=== PATIENT | male | born 1950 | race Caucasian/White ===

== ENCOUNTER → 2022-08-22 | Outpatient (CLI) | payer BC | END | disposition home or self-care (01) | LOC: LABWHC1 14:59 | PROVIDERS: ATTEND Orthopaedic Surgery | DX: M25.551 Pain in right hip (principal); Z96.641 Presence of right artificial hip joint; Z47.1 Aftercare following joint replacement surgery | CPT/HCPCS: 36415; 86140 ==

== ENCOUNTER 2023-12-11 15:00 | Observation (INO) | payer MEDICARE ==
--- NOTE | 2023-12-11 16:39 | ED ---
Neck Injury/Pain HPI - General Chief Complaint: Neck Pain/Injury Stated Complaint: poss meningitis Time Seen by Provider: 12/11/23 16:00 Source: patient, RN notes reviewed Mode of arrival: ambulatory Limitations: no limitations - History of Present Illness Initial Comments: 73-year-old male presenting to the ER for neck stiffness. Patient was seen by Lety Feliz from [facility] and was sent to ER for possible meningitis. Patient reports he has had a cough, nasal congestion, sore throat x 1 week. Over the course of the week he has had progressive neck stiffness and headache. States he "cannot focus with my eyes". Denies fevers, denies trauma or injury. He has never had this before. Denies altered mental status or confusion. No re cent travel. He is up-to-date on all vaccinations except for COVID-19. History of hypertension. - Related Data Home Medications Medication Instructions Recorded Confirmed Telmisartan 20 mg PO DAILY 12/11/23 12/11/23 Allergies Allergy/AdvReac Type Severity Reaction Status Date / Time bee venom protein (honey bee) Allergy Anaphylaxis Verified 12/11/23 19:57 Review of Systems ROS Statement: Those systems with pertinent positive or pertinent negative responses have been documented in the HPI. ROS Other: All systems not noted in ROS Statement are negative. Past Medical History Past Medical History: Hypertension Additional Past Surgical History / Comment(s): bilateral hips, right shoulder replacement, Past Psychological History: No Psychological Hx Reported Smoking Status: Former smoker Past Alcohol Use History: Daily Past Drug Use History: None Reported General Exam Limitations: no limitations General appearance: alert, in no apparent distress Head exam: Present: atraumatic, normocephalic, normal inspection Eye exam: Present: normal appearance, PERRL, EOMI. Absent: scleral icterus, conjunctival injection, periorbital swelling ENT exam: Present: normal exam, normal oropharynx, mucous membranes moist Neck exam: Present: normal inspection, other (Negative Kernig's and Bruskinsi sign). Absent: tenderness, meningismus, full ROM (Limited active flexion and extension of neck, full passive flexion and extension with pain), lymphadenopathy Respiratory exam: Present: normal lung sounds bilaterally. Absent: respiratory distress, wheezes, rales, rhonchi, stridor Cardiovascular Exam: Present: regular rate, normal rhythm, normal heart sounds. Absent: systolic murmur, diastolic murmur, rubs, gallop, clicks Neurological exam: Present: alert, oriented X3, CN II-XII intact Psychiatric exam: Present: normal affect, normal mood Skin exam: Present: warm, dry, intact, normal color. Absent: rash Course Vital Signs 12/11/23 12/11/23 12/11/23 15:26 16:15 18:45 Temperature 98.1 F 98 F 97.5 F L Pulse Rate 78 75 54 L Respiratory 18 18 Rate Blood Pressure 160/89 143/99 139/83 O2 Sat by Pulse 99 99 99 Oximetry 12/11/23 22:08 Temperature Pulse Rate 57 L Respiratory 17 Rate Blood Pressure 137/80 O2 Sat by Pulse 100 Oximetry Medical Decision Making - Medical Decision Making Was pt. sent in by a medical professional or institution (, PA, MAIL CLERK BILLS, urgent care, hospital, or residential...) When possible be specific @ -Sent by Dr. Feliz from [place] for possible meningitis Did you speak to anyone other than the patient for history (EMS, parent, family, police, friend...)? What history was obtained from this source @ -No Did you review nursing and triage notes (agree or disagree)? Why? @ -I reviewed and agree with nursing and triage notes Were old charts reviewed (outside hosp., previous admission, EMS record, old EKG, old radiological studies, urgent care reports/EKG's, residential records)? Report findings @ -No old charts were reviewed Differential Diagnosis (chest pain, altered mental status, abdominal pain women, abdominal pain men, vaginal bleeding, weakness, fever, dyspnea, syncope, headache, dizziness, GI bleed, back pain, seizure, CVA, palpatations, mental health, musculoskeletal)? @ -Differential Headache: Meningitis, viral URI, muscular strain, migraine, tension, cluster, carbon monoxide, central venous thrombosis, pension karma temporal arteritis, acute closure glaucoma, intercranial hemorrhage, mastoiditis, sinusitis, head injury, this is not meant to be an all-inclusive list. EKG interpreted by me (3pts min.). @ -None X-rays interpreted by me (1pt min.). @ -Chest x-ray reveals no acute process CT interpreted by me (1pt min.). @ -CT head and neck revealed no acute process U/S interpreted by me (1pt. min.). @ -None done What testing was considered but not performed or refused? (CT, X-rays, U/S, labs )? Why? @ -None What meds were considered but not given or refused? Why? @ -None Did you discuss the management of the patient with other professionals (professionals i.e. Dr., PA, MAIL CLERK BILLS, lab, RT, psych nurse, social science analyst, grinding supervisor, teacher, conservation enforcement officer, family independence case manager)? Give summary @ -I spoke with Dr. Malave on-call neurologist who recommends admission for lumbar puncture Was smoking cessation discussed for >3mins.? @ -No Was critical care preformed (if so, how long)? @ -No Were there social determinants of health that impacted care today? How? (Homelessness, low income, unemployed, alcoholism, drug addiction, transportation, low edu. Level, literacy, decrease access to med. care, detention, rehab)? @ -No Was there de-escalation of care discussed even if they declined (Discuss DNR or withdrawal of care, Hospice)? DNR status @ -No What co-morbidities impacted this encounter? (DM, HTN, Smoking, COPD, CAD, Cancer, CVA, ARF, Chemo, Hep., AIDS, mental health diagnosis, sleep apnea, morbid obesity)? @ -None Was patient admitted / discharged? Hospital course, mention meds given and route, prescriptions, significant lab abnormalities, going to OR and other pertinent info. @ -Admitted. This is a 73-year-old male with history of hypertension presenting with neck pain x 3 days. Patient has been experiencing cough and sore throat for the past week. He is experiencing pain and limited range of motion of neck. He was sent by Dr. Feliz from [place] for possible meningitis. Patient is afebrile, vital signs within acceptable limits. There is limited active range of motion of neck on examination, full passive range of motion with pain. Negative Kernig's and Bruzinski sign. Neurovascularly intact. Patient was provided with Tylenol and Toradol for symptom control. Lab work including CBC, CMP, lactic acid remarkable for blood glucose 47, however on recheck is 82. Patient was given juice. White blood cell count stable at 7.9. Cepheid and strep negative. Chest x-ray reveals no acute process. CT of head and neck revealed no acute process. I spoke with Dr. Malave on-call neurologist who recommends admission for lumbar puncture. Blood cultures were taken. Patient was empirically treated for meningitis and started on IV antibiotics, antivirals, and given 1 dose of dexamethasone. Patient was admitted to medicine team with consultation to interventional radiology for lumbar puncture. Case was discussed with my ED attending Dr. Mendenhall. Undiagnosed new problem with uncertain prognosis? @ -No Drug Therapy requiring intensive monitoring for toxicity (Heparin, Nitro, In sulin, Cardizem)? @ -No Were any procedures done? @ -No Diagnosis/symptom? @ -Headache, neck pain Acute, or Chronic, or Acute on Chronic? @ -Acute Uncomplicated (without systemic symptoms) or Complicated (systemic symptoms)? @ -Complicated Side effects of treatment? @ -No Exacerbation, Progression, or Severe Exacerbation? @ -No Poses a threat to life or bodily function? How? (Chest pain, [place], CO, pneumonia, PE, COPD, DKA, ARF, appy, cholecystitis, CVA, Diverticulitis, Homicidal, Suicidal, threat to staff... and all critical care pts) @ -Yes - Lab Data Result diagrams: 12/11/23 16:45 12/12/23 03:04 Lab Results 12/11/23 12/11/23 12/11/23 Range/Units 16:45 16:45 16:45 WBC 7.9 (3.8-10.6) k/uL RBC 4.53 (4.30-5.90) m/uL Hgb 14.6 (13.0-17.5) gm/dL Hct 44.7 (39.0-53.0) % MCV 98.7 (80.0-100.0) fL MCH 32.3 (25.0-35.0) pg MCHC 32.7 (31.0-37.0) g/dL RDW 11.7 (11.5-15.5) % Plt Count 266 (150-450) k/uL MPV 7.5 Neutrophils % 67 % Lymphocytes % 24 % Monocytes % 6 % Eosinophils % 1 % Basophils % 1 % Neutrophils # 5.3 (1.3-7.7) k/uL Lymphocytes # 1.9 (1.0-4.8) k/uL Monocytes # 0.5 (0-1.0) k/uL Eosinophils # 0.1 (0-0.7) k/uL Basophils # 0.0 (0-0.2) k/uL Sodium 138 (137-145) mmol/L Potassium 4.0 (3.5-5.1) mmol/L Chloride 106 (98-107) mmol/L Carbon Dioxide 24 (22-30) mmol/L Anion Gap 8 mmol/L BUN 10 (9-20) mg/dL Creatinine 0.94 (0.66-1.25) mg/dL Est GFR (CKD-EPI)AfAm >90 (>60 ml/min/1.73 sqM) Est GFR (CKD-EPI)NonAf 81 (>60 ml/min/1.73 sqM) Glucose 47 L* (74-99) mg/dL POC Glucose (mg/dL) (70-110) mg/dL POC Glu Bisque Ware Dipper ID Plasma Lactic Acid Yaniv 1.1 (0.7-2.0) mmol/L Calcium 8.9 (8.4-10.2) mg/dL Total Bilirubin 0.8 (0.2-1.3) mg/dL AST 23 (17-59) U/L ALT 12 (4-49) U/L Alkaline Phosphatase 58 (38-126) U/L Total Protein 7.2 (6.3-8.2) g/dL Albumin 4.4 (3.5-5.0) g/dL Influenza Type A (PCR) (Not Detectd) Influenza Type B (PCR) (Not Detectd) RSV (PCR) (Not Detectd) SARS-CoV-2 (PCR) (Not Detectd) Group A Strep (PCR) (Not Detectd) 12/11/23 12/11/23 12/11/23 Range/Units 17:10 17:10 17:30 WBC (3.8-10.6) k/uL RBC (4.30-5.90) m/uL Hgb (13.0-17.5) gm/dL Hct (39.0-53.0) % MCV (80.0-100.0) fL MCH (25.0-35.0) pg MCHC (31.0-37.0) g/dL RDW (11.5-15.5) % Plt Count (150-450) k/uL MPV Neutrophils % % Lymphocytes % % Monocytes % % Eosinophils % % Basophils % % Neutrophils # (1.3-7.7) k/uL Lymphocytes # (1.0-4.8) k/uL Monocytes # (0-1.0) k/uL Eosinophils # (0-0.7) k/uL Basophils # (0-0.2) k/uL Sodium (137-145) mmol/L Potassium (3.5-5.1) mmol/L Chloride (98-107) mmol/L Carbon Dioxide (22-30) mmol/L Anion Gap mmol/L BUN (9-20) mg/dL Creatinine (0.66-1.25) mg/dL Est GFR (CKD-EPI)AfAm (>60 ml/min/1.73 sqM) Est GFR (CKD-EPI)NonAf (>60 ml/min/1.73 sqM) Glucose (74-99) mg/dL POC Glucose (mg/dL) 82 (70-110) mg/dL POC Glu Bisque Ware Dipper ID Madan Dos Santos Plasma Lactic Acid Yaniv (0.7-2.0) mmol/L Calcium (8.4-10.2) mg/dL Total Bilirubin (0.2-1.3) mg/dL AST (17-59) U/L ALT (4-49) U/L Alkaline Phosphatase (38-126) U/L Total Protein (6.3-8.2) g/dL Albumin (3.5-5.0) g/dL Influenza Type A (PCR) Not Detected (Not Detectd) Influenza Type B (PCR) Not Detected (Not Detectd) RSV (PCR) Not Detected (Not Detectd) SARS-CoV-2 (PCR) Not Detected (Not Detectd) Group A Strep (PCR) NOT DETECTED (Not Detectd) Disposition Clinical Impression: Neck stiffness, Cough Disposition: ADMITTED IP TO THIS [facility] Time of Disposition: 11:30
[2023-12-11 17:00] LABS: Basophils % (A) 1 %; Eosinophils # (A) 0.1 k/uL (0-0.7); Eosinophils % (A) 1 %; HCT 44.7 % (39.0-53.0); HGB 14.6 gm/dL (13.0-17.5); Lymphocytes # (A) 1.9 k/uL (1.0-4.8); Lymphocytes % (A) 24 %; MCH 32.3 pg (25.0-35.0); MCHC 32.7 g/dL (31.0-37.0); MCV 98.7 fL (80.0-100.0); Mean Platelet Volume 7.5; Monocytes # (A) 0.5 k/uL (0-1.0); Monocytes % (A) 6 %; Neutrophils # (A) 5.3 k/uL (1.3-7.7); Neutrophils % (A) 67 %; Platelet Count 266 k/uL (150-450); RBC 4.53 m/uL (4.30-5.90); RDW 11.7 % (11.5-15.5); WBC 7.9 k/uL (3.8-10.6)
--- NOTE | 2023-12-11 17:02 | XR ---
EXAMINATION TYPE: XR chest 2V DATE OF EXAM: 12/11/2023 COMPARISON: Cough INDICATION: Cough, headaches, stiff neck TECHNIQUE: Frontal and lateral views of the chest are obtained. FINDINGS: The heart size is normal. The pulmonary vasculature is normal. The lungs are clear. IMPRESSION: 1. No acute pulmonary process. [facility], Workstation: [facility], 12/11/2023 5:00 PM
--- NOTE | 2023-12-11 17:14 | CT ---
EXAMINATION TYPE: CT brain wo con DATE OF EXAM: 12/11/2023 COMPARISON: None INDICATION: fever/neck ache, neck stiffness, vision changes DLP: 1164.4 mGycm, Automated exposure control for dose reduction was used. CONTRAST: None CT of the brain is performed utilizing 3 mm thick sections through the posterior fossa and 3 mm thick sections through the remaining calvarium. Study is performed within 24 hours of arrival to the hosp ital. No abnormal hyperdensity is present to suggest an acute intracranial hemorrhage. No mass lesion is evident. No acute infarcts are evident. Ventricles and sulci are appropriate for the patient age. Minimal prominence of the extra-axial spac es is present. Paranasal sinuses and mastoid air cells within the [id number] are clear. IMPRESSION: 1. No acute intracranial process. Follow up MRI can be performed as clinically indicated. [facility], Workstation: [facility], 12/11/2023 5:11 PM
[2023-12-11 17:22] LABS: ALT 12 U/L (4-49); AST 23 U/L (17-59); African American GFR (CKD) >90 (>60 ml/min/1.73 sqM); Albumin 4.4 g/dL (3.5-5.0); Alkaline Phosphatase 58 U/L (38-126); Anion Gap 8 mmol/L; Blood Urea Nitrogen 10 mg/dL (9-20); Calcium 8.9 mg/dL (8.4-10.2); Carbon Dioxide 24 mmol/L (22-30); Chloride 106 mmol/L (98-107); Non-African American GFR(CKD) 81 (>60 ml/min/1.73 sqM); Sodium 138 mmol/L (137-145); Total Bilirubin 0.8 mg/dL (0.2-1.3); Total Protein 7.2 g/dL (6.3-8.2)
[2023-12-11 17:28] LABS: Glucose 47 mg/dL (74-99)
[2023-12-11 17:33] LABS: Glucose,Whole Blood 82 mg/dL (70-110)
[2023-12-11] MEDS: ACETAMINOPHEN TAB 500 MG TAB PO STA (17:33)
[2023-12-11] MEDS ORDERED: ONDANSETRON 4 MG/2 ML VIAL IVP PRN (19:20)
[2023-12-11] MEDS ORDERED: NALOXONE 0.4 MG/ML 1 ML VIAL IV PRN (19:20)
--- NOTE | 2023-12-11 19:26 | CT ---
EXAMINATION TYPE: CT cervical spine wo con DATE OF EXAM: 12/11/2023 COMPARISON: None HISTORY: Neck pain. CT DLP: 457.5 mGycm CONTRAST: None CT of the cervical spine is performed in the axial plane at 2 mm thick sections. Reconstructed image s in the coronal, and sagittal plane are reviewed on the computer. No acute fractures are evident. Vertebral body alignment is normal. There is loss of disc height C6-7 with vacuum disc phenomenon. Disc space narrowing is present C5-6. Small posterior inferior spur is at C5. Vertebral body heights are preserved. No spinal canal stenosis is evident Left foraminal narrowing from facet hypertrophy and uncovertebral joint hypertrophy is present at C3- 4. Mild bilateral foraminal narrowing is present C5-6 and on the left at C6-7 IMPRESSION: 1. No acute osseous abnormality cervical spine. 2. Degenerative disc change mid to lower cervical spine discussed above [facility], Workstation: [facility], 12/11/2023 7:24 PM
[2023-12-11] MEDS ORDERED: VANCOMYCIN IV PER PHARMACY 1 EACH MISC MISCELLANE PRN (19:31)
[2023-12-11] MEDS ORDERED: AMPICILLIN 250 MG VIAL IV SCH (19:45)
[2023-12-11] MEDS: DEXAMETHASONE SOD PHOSPHATE 10 MG/ML 1 ML VIAL IVP STA (21:19)
[2023-12-11] MEDS: KETOROLAC 15 MG/ML 1 ML VIAL IVP STA (21:24)
[2023-12-11] MEDS: AMPICILLIN 2,000 MG in SODIUM CHLORIDE 0.9% 100 ML IVPB STA (22:28)
[2023-12-11] MEDS: VANCOMYCIN 1,500 MG in SODIUM CHLORIDE 0.9% 500 ML 500 ML IVPB STA (23:32)
[2023-12-12] MEDS: ACYCLOVIR SODIUM 800 MG in SODIUM CHLORIDE 0.9% 250 ML IV SCH ×2 (00:02→04:57)
[2023-12-12] MEDS: VANCOMYCIN 1,500 MG in SODIUM CHLORIDE 0.9% 500 ML 500 ML IVPB ONE (00:23)
[2023-12-12] MEDS: AMPICILLIN 2,000 MG in SODIUM CHLORIDE 0.9% 100 ML IVPB SCH (04:21)
[2023-12-12 04:34] LABS: African American GFR (CKD) >90 (>60 ml/min/1.73 sqM); Non-African American GFR(CKD) 82 (>60 ml/min/1.73 sqM)
[2023-12-12] MEDS: VANCOMYCIN 1,500 MG in SODIUM CHLORIDE 0.9% 500 ML 500 ML IVPB SCH (12:33)
[2023-12-12] MEDS: ENOXAPARIN 40 MG/0.4 ML SYRINGE SQ SCH (13:21)
[2023-12-12] MEDS: LOSARTAN 50 MG TAB PO SCH (13:27)
--- NOTE | 2023-12-12 17:08 | P.HPIM ---
History of Present Illness H&P Date: 12/12/23 Chief Complaint: Cough Pleasant 73-year-old patient, follows with Dr. Jose Enrique JUNG. Patient states she has had a cough for close to 2 years. For 2 weeks he been humphrey ving increasing cough. Also noted some neck stiffness. Pain in the back of the neck going up to the back of the head. Finding it difficult to turn his head. No fever no chills. He did notice slight blurring of the vision. Does concern for meningitis in the ER. Was started on IV Unasyn and vancomycin. And ceftriaxone. Patient also had been feeling of fullness on the side of both the neck. This morning actually feels better. Lumbar puncture was ordered by ER. This morning interventional radiology communicated that they will not build to do the LP. Has to be deferred to neurology. Review of systems: GEN.: Tired EYES: None HEENT: As above. No headache per se. No nausea vomiting. NECK: As above RESPIRATORY: None CARDIOVASCULAR: None GASTROINTESTINAL: None GENITOURINARY: None MUSCULOSKELETAL: None LYMPHATICS: None HEMATOLOGICAL: None PSYCHIATRY: None NEUROLOGICAL: None Social history: . Retired clamp truck driver. Drinks average about 1 beer a day. Physical examination: VITAL SIGNS: 98.1, 61, 17, 155 x 78, 100% room air upon presentation GENERAL: BMI 27.5, reclining bed of awake comfortable. EYES: Pupils equal. Conjunctiva vanesa l. HEENT: External appearance of nose and ears normal, oral cavity grossly normal. NECK: JVD not raised; masses not palpable. HEART: First and second heart sounds are normal; no edema. LUNGS: Respiratory rate normal; clear to auscultation. ABDOMEN: Soft, nontender, liver spleen not palpable, no masses palpable. PSYCH: Alert and oriented x3; mood and affect vanesa l. MUSCULOSKELETAL:No Clubbing/cyanosis;muscles-grossly intact NEUROLOGICAL: Cranial nerves grossly intact; no facial asymmetry, power and sensation grossly intact. No neck stiffness. Able to touch his chin close to his chest LYMPHATICS: No lymph nodes palpable in the axilla and neck Investigation: White count 7.9 hemoglobin 14.6 platelets 266 sodium 138 potassium 4 creatinine 0.94 Influenza type A, type B, RSV, COVID-19, group A strep PCR: Not detected Chest x-ray film personally reviewed by me-unremarkable CT brain without contrast: Unremarkable CT cervical spine without contrast: Some DJD changes mid to lower cervical spine Assessment plan: -Neck stiffness. Patient presents with cough for 2 weeks. No fever no chills. No headache. No nausea vomiting. Had some neck stiffness finding it difficult to turn to the left or right. Was concerned about meningitis in the ER. Patient started on antibiotics include IV Unasyn, ceftriaxone, vancomycin. Patient does feel better this morning. Given patient presentation clinical suspicion for meningitis is rather low. Needs to be ruled out. Neurology Dr. Herr consulted as intervention radiology not able to do lumbar puncture. Note that patient has normal white count with no shift. -Suspicion for viral pharyngitis -Cervical spine DJD Tylenol as needed -Essential hypertension Telmisartan Care was discussed with patient. Questions answered. Past Medical History Past Medical History: Hypertension History of Any Multi-Drug Resistant Organisms: None Reported Additional Past Surgical History / Comment(s): bilateral hips, right shoulder replacement, Smoking Status: Former smoker Medications and Allergies Home Medications Medication Instructions Recorded Confirmed Type Telmisartan 20 mg PO DAILY 12/11/23 12/11/23 History Allergies Allergy/AdvReac Type Severity Reaction Status Date / Time bee venom protein (honey bee) Allergy Anaphylaxis Verified 12/11/23 19:57 Physical Exam Vitals: Vital Signs Temp Pulse Pulse Resp BP BP Pulse Ox 12/12/23 08:00 98.1 F 71 17 125/68 96 12/12/23 01:27 97.9 F 60 17 153/78 100 12/11/23 22:50 98.1 F 61 17 155/78 100 12/11/23 22:39 97.9 F 61 16 137/78 98 12/11/23 22:08 57 L 17 137/80 100 12/11/23 18:45 97.5 F L 54 L 139/83 99 12/11/23 16:15 98 F 75 18 143/99 99 12/11/23 15:26 98.1 F 78 18 160/89 99 Intake and Output 12/11/23 12/12/23 12/12/23 22:59 06:59 14:59 Intake Total 120 Balance 120 Intake: Oral 120 Other: Voiding Method Toilet # Voids 1 Weight 84.368 kg Results CBC & Chem 7: 12/11/23 16:45 12/12/23 03:04 Labs: Abnormal Lab Results - Last 24 Hours (Table) 12/11/23 Range/Units 16:45 Glucose 47 L* (74-99) mg/dL
[2023-12-12 17:34] LABS: Glucose,CSF 74 mg/dL (40-70); Total Protein,CSF 89 mg/dL (12-60)
[2023-12-12 18:40] LABS: Appearance,CSF Clear; CSF Tube Number 4; Nucleated Cells, CSF 0 u/L (0-5); Red Blood Cell,CSF 2 u/L (0-10)
[2023-12-12] MEDS: KETOROLAC 15 MG/ML 1 ML VIAL IVP PRN (20:17)
[2023-12-13 08:19] VITALS: BP 160/94; PULSE 67; RESP 17; TEMP 98.6
--- NOTE | 2023-12-13 08:39 | P.CNNES ---
History of Present Illness Consult date: 12/12/23 Requesting physician: Justino Rose Reason for Consult: Lumbar puncture History of Present Illness: Patient is a 73-year-old left-handed male came to the hospital yesterday at 3 PM for new onset neck stiffness, visual disturbance. Patient states that for last 2 weeks he has developed stiffness in the neck, could not turn the head sideways. The pain was involving back of the neck, back of the head, side of the neck to the ears. He also had cough and sore throat for last 1 week. He also noticed that he has problems with focusing, although denies any pain in the eyes, however his vision felt like "fuzzy". He was requiring glasses for near vision. He denies any fever or chills, denies any neck injury. He denies any moving furniture lately. He saw his primary physician, who wanted to rule out meningitis therefore he was referred to the hospital. Vital signs on arrival blood pressure 160/89, which improved to 143/99, pulse rate 78 temperature 98.1. Patient has been afebrile. Blood test shows normal CBC, with normal differential. WBC count 7.9. CMP is normal, but glucose was low 47. Influenza, RSV, coronavirus and group A strep negative. Chest x-ray showed no acute pulmonary process. CT head revealed no acute intracranial process. I personally reviewed CT head, agree with the findings. CT of the cervical spine revealed no acute osseous abnormality cervical spine. Degenerative disc change, mid to lower cervical spine. Home medication includes telmisartan 20 mg. In the ER patient was started on acyclovir, ampicillin, ceftriaxone and vancomycin. Patient states that his symptoms have remarkably improved. His neck he also has been less stiff. The s ore throat, has improved. Patient remains afebrile. For the last 3 to 6 months, his hands get numb and tingly at night. It involves all 10 digits but particularly worse in the middle 2 fingers of the right hand. He denies any weakness of the arms or legs. Denies any balance issues. Patient states that about 30 years ago, he slipped off a cab on the truck and held himself with his middle 2 fingers of the right hand to prevent the fall. Did not hit his head or neck. However since then he had problems with the middle 2 fingers of the right hand. Denies any shoulder pain. Patient admits to having chronic back pain in himself as well as multiple family members. Review of Systems All pertinent positive and negative review of systems mentioned in the HPI. Past Medical History Past Medical History: Hypertension History of Any Multi-Drug Resistant Organisms: None Reported Additional Past Surgical History / Comment(s): bilateral hips, right shoulder replacement, Past Psychological History: No Psychological Hx Reported Smoking Status: Former smoker Past Alcohol Use History: Daily Past Drug Use History: None Reported Medications and Allergies Home Medications Medication Instructions Recorded Confirmed Type Telmisartan 20 mg PO DAILY 12/11/23 12/11/23 History Allergies Allergy/AdvReac Type Severity Reaction Status Date / Time bee venom protein (honey bee) Allergy Anaphylaxis Verified 12/11/23 19:57 Physical Examination - Vital Signs Vital Signs: Vital Signs Temp Pulse Pulse Resp BP BP Pulse Ox 12/12/23 08:00 98.1 F 71 17 125/68 96 12/12/23 01:27 97.9 F 60 17 153/78 100 12/11/23 22:50 98.1 F 61 17 155/78 100 12/11/23 22:39 97.9 F 61 16 137/78 98 12/11/23 22:08 57 L 17 137/80 100 12/11/23 18:45 97.5 F L 54 L 139/83 99 12/11/23 16:15 98 F 75 18 143/99 99 12/11/23 15:26 98.1 F 78 18 160/89 99 Intake and Output 12/11/23 12/12/23 12/12/23 22:59 06:59 14:59 Intake Total 120 Balance 120 Intake: Oral 120 Other: Voiding Method Toilet # Voids 1 Weight 84.368 kg Patient is a young looking male, in no acute distress. Patient is very pleasant. Patient is alert awake oriented to time place and person. Speech and language functions are normal. Patient can name and repeat very well. No aphasia or dysarthria. Attention, concentration and fund of knowledge is adequate. On cranial nerve examination, pupils are equal, round and reacting to light, visual belle are full on confrontation, with no neglect on double simultaneous stimulation. Extraocular muscles are intact with no nystagmus. Face is symmetric, tongue protrudes to the midline. Palatal elevation and sensation normal, hearing and shoulder shrug normal, facial sensation normal. On muscle strength testing, there is no pronator drift and the strength is normal in arms and legs distally and proximally. Deep tendon reflexes are (right/left) biceps 1/2+, brachioradialis 1/2+, knees 3/3, ankles 1/1 and plantars are downgoing bilaterally. Sensory to touch is equal with no neglect on double simultaneous stimulation. Cerebellar function showed no ataxia for [id number]-[id number] testing. No dysdiadochokinesia. No ataxia for [id number] testing on either side. Tone and bulk of muscles normal. Gait deferred.. On general examination, there is no carotid bruit or murmur, S1-S2 audible. Chest is clear on consultation. Abdomen is soft nontender. No organomegaly, bowel sounds present. Peripheral pulses are present. No peripheral edema. Results - Laboratory Findings CBC and BMP: 12/11/23 16:45 12/12/23 03:04 Abnormal Lab Findings: Abnormal Labs 12/11/23 16:45 Glucose 47 L* Assessment and Plan Assessment: * 73-year-old male, came with 2-week history of neck stiffness, pain in the back and sides of the neck, and the posterior part and top of the head and a sore throat. No fever or chills. Doubt meningitis. However his symptoms have improved since being on multiple antibiotics including acyclovir, ampicillin, vancomycin and ceftriaxone. * Hypertension Plan: * There is low index of suspicion for meningitis. However patient's symptoms have improved since being on antibiotics as mentioned above. Therefore at this point, may have to consider lumbar puncture to rule out meningitis. Discussed with primary physician, who agreed with proceeding with lumbar puncture. * Patient was informed of risks and benefits of lumbar puncture, and he consente d for it. * Consider Mobic 15 mg daily for neck pain. Patient probably have some degree of cervical spondylosis. He does have history of back pain as well. * Neurology will follow. Thank you for the consult.
[2023-12-13 08:45] LABS: African American GFR (CKD) 90 (>60 ml/min/1.73 sqM); Anion Gap 2 mmol/L; Blood Urea Nitrogen 15 mg/dL (9-20); Calcium 8.1 mg/dL (8.4-10.2); Carbon Dioxide 25 mmol/L (22-30); Chloride 113 mmol/L (98-107); Glucose 92 mg/dL (74-99); Non-African American GFR(CKD) 77 (>60 ml/min/1.73 sqM); Potassium 4.7 mmol/L (3.5-5.1); Sodium 140 mmol/L (137-145)
--- NOTE | 2023-12-13 08:46 | P.PCN ---
Date of Procedure: 12/12/23 Preoperative Diagnosis: Rule out meningitis Postoperative Diagnosis: Rule out meningitis Procedure(s) Performed: Lumbar puncture Anesthesia: local Surgeon: Mal Malave Estimated Blood Loss (ml): 1 Condition: stable Disposition: floor Indications for Procedure: Headache, neck stiffness, sore throat, rule out meningitis Description of Procedure: Informed consent was obtained from patient. Very detailed risks and benefits of the procedure, and the indication of procedure was explained to the patient and her son in the presence of nurse. Patient was informed of the potential risk of infection, bleeding, numbness, back pain, and the features of post spinal headache and the treatment. Patient was placed on the side of the bed in a sitting position. L4 lumbar space was identified and marked. Procedure performed under very strict aseptic conditions. Low back region was sterilized with ChloraPrep and then Betadine. Low back region was anesthetized with 1% lidocaine. At at L4 lumbar space, the spinal needle, 3.5 inch, 20-gauge was inserted. I was getting a lot of resistance, tried a few times. I consented with the patient about trying lumbar puncture on 1 space higher. He agreed. Then I anesthetized the L3 lumbar space with lidocaine. After a couple attempts, I was able to enter subarachnoid space. Spinal fluid was traumatic and very slightly blood tinged in the first tube, and cleared after in the second tube. About 10 mL of clear and colorless spinal fluid obtained in 4 tubes. Stylet was reintroduced, and then spinal needle withdrawn. Band-Aid was applied. Patient was recommended to lay flat for half an hour. Patient tolerated the procedure very well.
[2023-12-13] MEDS: VANCOMYCIN TROUGH DUE 1 EACH MISC MISCELLANE ONE (10:18)
--- NOTE | 2023-12-13 10:42 | P.PN ---
Progress Note - Text Progress Note Date: 12/13/23 CSF showed WBC 0, RBC 2, glucose 74, protein 89. Gram stain showed no polymorphonuclear leukocyte, no organisms seen. Comprehensive viral panel negative including HSV virus and VZV virus. CSF VDRL negative. CSF was normal, may discontinue antibiotics. I also ordered blood test including ESR 5, CRP 0.60, hemoglobin A1c 5.5, B12 459, folate 10.10 and TSH 0.620, all normal No evidence of temporal arteritis. Suggest MRI of the cervical spine and EMG of upper extremities (for numbness of both hands), which can be done as an outpatient. Discussed with primary physician in detail. He is planning to refer patient to orthopedic surgery outpatient.
[2023-12-13] MEDS: predniSONE 20 MG TAB PO STA (11:40)
[2023-12-13] MEDS: NAPROXEN 250 MG TAB PO STA (11:40)
--- NOTE | 2023-12-13 16:46 | P.DS ---
Providers Date of admission: 12/11/23 19:36 Expected date of discharge: 12/13/23 Attending physician: Justino Rose Consults: 12/12/23 11:28 Consult Physician Routine Consulting Provider: Mal Malave Consult Reason/Comments: lumbar puncture Do you want consulting provider notified?: Yes Primary care physician: Jose Enrique Orr [facility] Course: Chief Complaint: Cough Pleasant 73-year-old patient, follows with Dr. Jose Enrique JUNG. Patient states she has had a cough for close to 2 years. For 2 weeks he been having increasing cough. Also noted some neck stiffness. Pain in the back of the neck going up to the back of the head. Finding it difficult to turn his head. No fever no chills. He did notice slight blurring of the vision. Does concern for meningitis in the ER. Was started on IV Unasyn and vancomycin. And ceftriaxone. Patient also had been feeling of fullness on the side of both the neck. This morning actually feels better. Lumbar puncture was ordered by ER. This morning interventional radiology communicated that they will not build to do the LP. Has to be deferred to neurology. December 12: Patient continues to have no fever. Patient did say that he has had neck pain for years. 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 I am guessing by coughing he is made his neck pain worse. CT scan did show significant arthritis. Will start patient on naproxen and prednisone taper and have the patient follow-up with Dr. Villalobos outpatient for his cervical spine. I spoke to Dr. Malave from neurology. CSF results discussed. To discontinue antibiotics and antiviral. Short course of Ceftin to be completed for his pharyngitis. Questions answered Discussion and discharge planning more than 35 minutes Social history: . Retired entry level truck driver. Drinks average about 1 beer a day. Physical examination: VITAL SIGNS: 98.6, 67, 17, 160 x 94, 98% room air GENERAL: BMI 27.5,, Ean EYES: Pupils equal. Conjunctiva vanesa l. HEENT: External appearance of nose and ears normal, oral cavity grossly normal. NECK: JVD not raised; masses not palpable. HEART: First and second heart sounds are normal; no edema. LUNGS: Respiratory rate normal; clear to auscultation. ABDOMEN: Soft, nontender, liver spleen not palpable, no masses palpable. PSYCH: Alert and oriented x3; mood and affect vanesa l. MUSCULOSKELETAL:No Clubbing/cyanosis;muscles-grossly intact. Some limitation of neck movements in all directions. Investigation: December 12: Potassium 4.7 creatinine 0.98 CSF: Clear. RBC 2. Nucleated cells 0. Glucose 94. Total protein 89 White count 7.9 hemoglobin 14.6 platelets 266 sodium 138 potassium 4 creatinine 0.94 Influenza type A, type B, RSV, COVID-19, group A strep PCR: Not detected Chest x-ray film personally reviewed by me-unremarkable CT brain without contrast: Unremarkable CT cervical spine without contrast: Some DJD changes mid to lower cervical spine Assessment plan: -Neck stiffness from acute flareup of cervical spine DJD. CT scan showing significant changes. Will treat with a course of naproxen, prednisone. Follow-up with Dr. Nicole Villalobos outpatient in 2 weeks. -Acute pharyngitis Completed short course of Ceftin -Meningitis ruled out -Essential hypertension Telmisartan Disposition: Home Past Medical History Past Medical History: Hypertension History of Any Multi-Drug Resistant Organisms: None Reported Additional Past Surgical History / Comment(s): bilateral hips, right shoulder replacement, Smoking Status: Former smoker Plan - Discharge Summary Discharge Rx Participant: No New Discharge Prescriptions: New Naproxen [Naprosyn] 250 mg PO TID #42 tab predniSONE 10 mg PO DAILY #30 tab cefUROXime axetiL [Ceftin] 500 mg PO BID #10 tab Continue Telmisartan 20 mg PO DAILY Discharge Medication List Telmisartan 20 mg PO DAILY 12/11/23 [History] Naproxen [Naprosyn] 250 mg PO TID #42 tab 12/13/23 [Rx] cefUROXime axetiL [Ceftin] 500 mg PO BID #10 tab 12/13/23 [Rx] predniSONE 10 mg PO DAILY #30 tab 12/13/23 [Rx] Follow up Appointment(s)/Referral(s): Jose Enrique Jung DO [Primary Care Provider] - 12/21/23 9:15 am Nicole Villalobos DO [Doctor of Osteopathic Medicine] - 2 Weeks Discharge Disposition: HOME SELF-CARE
[2023-12-14 11:07] LABS: VDRL, Qualitative CSF Nonreactive (Nonreactive)
== END 2023-12-13 12:17 | disposition home or self-care (01) ==
LOC: EC 15:00 → 4SSUR 19:36 → INTOOBSV 19:36 → 4SSUR 20:37 → UNDODISIN 12-13 12:17
PROVIDERS: ADMIT Hospitalist; ATTEND Hospitalist
PROC: 009U3ZX Drainage of Spinal Canal, Percutaneous Approach, Diagnostic (ICD-10-PCS; principal; 2023-12-12)
DX: M47.812 Spondylosis without myelopathy or radiculopathy, cervical region (principal); J02.9 Acute pharyngitis, unspecified; I10 Essential (primary) hypertension; H53.9 Unspecified visual disturbance; G89.29 Other chronic pain; M54.9 Dorsalgia, unspecified; Z79.899 Other long term (current) drug therapy; Z91.030 Bee allergy status; Z87.891 Personal history of nicotine dependence; Z11.52 Encounter for screening for COVID-19; Z11.59 Encounter for screening for other viral diseases
CPT/HCPCS: 96376; 96366 ×2; 96367 ×2; 96372; 96368 ×2; 96365; 96375; 99284; 36415; 87651; 87496; 87498; 87529; 87798 ×2; 86592; 84157; 80053; 80048; 82945; 80176; 85652; 84443; 82607; 82565; 82746; 83605; 85025; 80202; 86140; 89050; 87040; 87070; 87205; 83036; 87636; 71046; 72125; 70450; 62270; G0378 ×3; J3370; J1100; J0133 ×2; J0696 ×3; J1650; J0290 ×3; J1885 ×2; J7512; 99285